=== PATIENT | male | born 1940 | race Caucasian/White ===

== ENCOUNTER 2016-11-21 07:25 | Inpatient (IN) ==
--- NOTE | 2016-11-21 09:06 | Diag Imaging Result Document ---
PROCEDURE NAME: CHEST-PORTABLE - 11/21/2016 PORTABLE CHEST, 2 VIEWS: FINDINGS: There are multiple old rib fractures on the left. There are sternotomy wires. There is an aortic valve prosthesis. There has apparently been left upper lobectomy. Considering differences in technique and positioning, there has been no appreciable change since 08/04/2016. IMPRESSION: Stable chest.
--- NOTE | 2016-11-21 09:08 | Diag Imaging Result Document ---
PROCEDURE NAME: XRAY HIP UNILATERAL LT - 11/21/2016 LEFT HIP, 2 VIEWS: FINDINGS: There is a fracture of the femoral neck. There is extensive atherosclerotic calcification in the iliac and superficial femoral arteries. IMPRESSION: Femoral neck fracture.
[2016-11-21] MEDS ORDERED: ZOFRAN IV ONE (09:31)
[2016-11-21] MEDS ORDERED: MORPHINE IM ONE (09:31)
--- NOTE | 2016-11-21 09:37 | PROVIDER DOCUMENTATION ---
HPI-Musculoskeletal Pain/Inj - GENERAL Chief Complaint: Hip Pain Stated Complaint: fall from standing, hip pain Time Seen by Provider: 11/21/16 09:18 Source: patient - HX OF PRESENT ILLNESS-MUSKULOSKELTAL Nature of Presenting Problem: Pt is a 76 y/o M c chief complaint of L hip pain after he had a mechanical trip and fall this morning on loose gravel. Pt states he had no LOC but was unable to get up after the fall. Pt's friend came to the drive way shortly after the fall and called 911. Pt has a h/o FL, CABG, recent DVTs, HTN, lung CA. He is currently on anti-coagulants. He is [facility] On arrival, pt is in minimal distress. Review of Systems - Adult - REVIEW OF SYSTEMS - ADULT Constitutional: reports: no symptoms reported. denies: chills, fatique Eyes: reports: no symptoms reported. denies: blurred vision, double vision Ears, Nose, Mouth & Throat: reports: no symptoms reported. denies: ear pain, nose pain Cardiovascular: reports: no symptoms reported. denies: chest pain, irregular heart rate Respiratory: reports: chronic cough, wheezing. denies: cough Gastrointestinal: reports: no symptoms reported. denies: abdominal pain, nausea Genitourinary: reports: no symptoms reported. denies: dysuria, hematuria Musculoskeletal: reports: bone pain, joint pain, joint swelling Integumentary: reports: no symptoms reported. denies: itching, rash Neurological: reports: no symptoms reported. denies: numbness, paresthesia Psychiatric: reports: no symptoms reported. denies: anxiety, emotional problems Endocrine: reports: no symptoms reported. denies: cold intolerance, heat intolerance Hematologic/Lymphatic: reports: no symptoms reported. denies: blood clots, low blood count Allergic/Immunologic: reports: no symptoms reported. denies: allergic reactions , food allergy All Other Systems: Reviewed and Negative Past History - Adult - PAST MEDICAL HISTORY-ADULT Review of Records: reports: Old Records Reviewed, Nursing Assessment Review, Medications Reviewed, Social history reviewed & non-contributory. Major Childhood Illnesses: reports: denies history Cardiovascular: reports: cardiac disease, CAD, HTN, heart valve problem (aortic valved replacement), FL, PVD Respiratory: reports: COPD, lung disease Gastrointestinal: reports: denies history Obstetrical/Gynecological: reports: denies history Genitourinary: reports: denies history Musculoskeletal: reports: denies history Neurological: reports: denies history Endocrine/Immune: reports: thyroid disorder Other Conditions: reports: denies history - PRIOR SURGERIES/PROCEDURES Surgical/Procedure History: reports: CABG, hernia repair, orthopedic (extremity) , other (arterial bypass legs, lung resection, aortic valve replacement) - PRIOR HOSPITALIZATIONS Prior Hospitalizations: reports: for other non-related - IMMUNIZATION STATUS Childhood Immunizations: See Nurse Assessment Flu Vaccine: See Nurse Assessment - FAMILY HISTORY Family History: reviewed, not pertinent Physical Exam-Injury Related - Physical Exam-Injury Related General Appearance: alert, mild distress Eyes: PERRL/EOMI, pink conjunctivae Head, Ears, Nose, Mouth & Throat: normocephalic/atraumatic, moist mucous membranes, normal ENT inspection Neck: non-tender, full range of motion, supple Respiratory: chest non-tender, lungs clear, normal breath sounds Cardiovascular: normal peripheral pulses, regular rate, rhythm, no edema Abdominal Exam: normal bowel sounds, non tender, soft Lymphatic: no adenopathy Back Exam: normal inspection Extremity: tenderness (L lateral hip tender on palpation and c movement of LLE) Integumentary: normal color, warm/dry, blanching Neurologic: grossly normal, no motor/sensory deficits Psych/Mental Status: normal mood/affect, normal thought content, normal thought process, oriented x 3 - Glascow Coma Score Best Eye Response ([place]): (4) open spontaneously Best Verbal Response (Maur[place]): (5) oriented Best Motor Response ([place]): (6) obeys commands Progress - PLAN OF CARE/RESULTS Progress/Plan/Lab Results: Laboratory Results - last 24 hr 11/21/16 11/21/16 11/21/16 09:35 09:35 09:35 WBC 11.24 H RBC 4.35 L Hgb 13.8 L Hct 40.9 L MCV 94.0 MCH 31.7 H MCHC 33.7 RDW Std Deviation 13.7 Plt Count 142 MPV 10.6 H Immature Gran % (Auto) 0.3 Neut % (Auto) 83.8 H Lymph % (Auto) 3.9 L Steele % (Auto) 9.5 H Eos % (Auto) 2.2 Baso % (Auto) 0.3 Immature Gran # (Auto) 0.03 Neut # (Auto) 9.42 H Lymph # (Auto) 0.44 L Steele # (Auto) 1.07 H Eos # (Auto) 0.25 Baso # (Auto) 0.03 PT 12.1 H INR 1.14 PTT (Actin FS) 33.4 Sodium 134 L Potassium 4.5 Chloride 98 Carbon Dioxide 25 Anion Gap 11 BUN 24 H Creatinine 1.4 H Estimated GFR/1.73 m2 50 BUN/Creatinine Ratio 17 Glucose 101 Calculated Osmolality 272 Calcium 8.7 L Total Bilirubin 0.73 AST 135 H ALT 34 Alkaline Phosphatase 66 Total Protein 7.0 Albumin 3.5 Globulin 3.5 Albumin/Globulin Ratio 1.0 Urine Source Urine Color Urine Turbidity Urine pH Ur Specific [place] Urine Protein Ur Glucose (Stick) Ur Ketones (Stick) Urine Blood Urine Nitrite Urine Bilirubin Urobilinogen Dipstick Urine Leukocytes Urine WBC (Auto) Urine RBC (Auto) U Epithel Cells (Auto) Urine Bacteria (Auto) Blood Type Antibody Screen 11/21/16 11/21/16 09:35 10:05 WBC RBC Hgb Hct MCV MCH MCHC RDW Std Deviation Plt Count MPV Immature Gran % (Auto) Neut % (Auto) Lymph % (Auto) Steele % (Auto) Eos % (Auto) Baso % (Auto) Immature Gran # (Auto) Neut # (Auto) Lymph # (Auto) Steele # (Auto) Eos # (Auto) Baso # (Auto) PT INR PTT (Actin FS) Sodium Potassium Chloride Carbon Dioxide Anion Gap BUN Creatinine Estimated GFR/1.73 m2 BUN/Creatinine Ratio Glucose Calculated Osmolality Calcium Total Bilirubin AST ALT Alkaline Phosphatase Total Protein Albumin Globulin Albumin/Globulin Ratio Urine Source CATH Urine Color YELLOW Urine Turbidity CLEAR Urine pH 5.0 Ur Specific [place] 1.015 Urine Protein TRACE A Ur Glucose (Stick) NEGATIVE Ur Ketones (Stick) TRACE A Urine Blood SMALL A Urine Nitrite NEGATIVE Urine Bilirubin NEGATIVE Urobilinogen Dipstick NORMAL Urine Leukocytes NEGATIVE Urine WBC (Auto) <10 Urine RBC (Auto) <10 U Epithel Cells (Auto) <10 Urine Bacteria (Auto) NEGATIVE Blood Type A POSITIVE Antibody Screen NEGATIVE Orders Category Date Time Status Admit - [facility] Routine AdmDCTranf 11/21/16 10:29 Ordered Activity - Strict Bedrest ORDERED Care 11/21/16 10:29 Active Lewis Cath Insertion ORDERED Care 11/21/16 09:23 Inactive Hold Anticoagulants DIRECTED Care 11/21/16 09:45 Inactive Neurological Check Q4H Care 11/21/16 10:29 Active Nursing- MD Consult Request ROUTINE Care 11/21/16 10:29 Completed Vital Signs Order Q 8-HR .ASSESS Care 11/21/16 10:29 Active MD [Physician/Provider Consults] Routine Cons 11/21/16 10:29 Ordered MD [Physician/Provider Consults] Routine Cons 11/21/16 10:29 Ordered CHEST-PORTABLE [RAD] Stat Exams 11/21/16 07:40 Completed XRAY HIP UNILATERAL LT [RAD] Stat Exams 11/21/16 07:40 Completed CBC WITH ELECTRONIC DIFF [HEME] Stat Lab 11/21/16 09:35 Completed COMPREHENSIVE METABOLIC PANEL [CHEM] Stat Lab 11/21/16 09:35 Completed PROTIME WITH INR [COAG] Stat Lab 11/21/16 09:35 Completed PTT [COAG] Stat Lab 11/21/16 09:35 Completed TYPE & SCREEN [BBK] Stat Lab 11/21/16 09:35 Completed URINALYSIS W/POSS RFLX CULT-1 [URINALYSIS] Stat Lab 11/21/16 10:05 Completed Metoprolol [Lopressor] Med 11/21/16 21:00 Active 25 mg PO BID Morphine Med 11/21/16 10:29 Active 2 mg IV Q4H PRN PRN Morphine Med 11/21/16 09:31 Discontinued 4 mg IM NOW ONE Omeprazole [Prilosec] Med 11/21/16 11:15 Active 20 mg PO DAILY@0700 Ondansetron [Zofran] Med 11/21/16 09:31 Discontinued 4 mg IV NOW ONE Ondansetron [Zofran] Med 11/21/16 10:29 Active 4 mg IV Q4H PRN PRN PRAVAstatin [Pravachol] Med 11/21/16 11:15 Active 80 mg PO DAILY Oxygen Device Routine Oth 11/21/16 10:29 Active Telemetry [OM.EQ] Routine Oth 11/21/16 10:29 Active EKG [EKG] Stat Ther 11/21/16 09:21 Draft Transfer/Admit Order [TRANSFER] Routine Transfer 11/21/16 09:46 Completed Result Diagrams: 11/21/16 09:35 05/12/17 09:35 - XRAY 1 XRAY: Left XRAY Study: Hip Impression: Abnormal (fx L femoral neck) - CONSULTS/PCP/HOSPITALIST Notification #1 *Consult/PCP/Hospitalist*: Dr. Burns (Ortho) Time Discussed: 09:49 Reason/Comments: Will see pt at 12p #2 Consult: Dr. Ortiz (Hospitalist) Time Discussed: 09:49 (Pending head ct) Reason/Comments: Will see pt and write all orders. Departure - Departure Time of Disposition Decision: 09:50 DIAGNOSIS: Femoral neck fracture Qualifiers: Encounter type: initial encounter Fracture type: closed Laterality: left Qualified Code(s): S72.002A - Fracture of unspecified part of neck of left femur , initial encounter for closed fracture Disposition: ADMITTED INPATIENT 09 Certified Medical Emergency: Emergent Condition: Stable - Critical Care Note This patient required my direct & personal management of CC.: No Attestation - Physician/ NINA Attestation Patient care was provided by Advanced Practice Provider:: Yes Advanced Practice Provider:: Peterson Mercado Advanced Practice Provider documentation review:: The Mid-level provider documentation, treatment plan and medical decision making was reviewed by the physician who agrees with all treatment and medical decision making by the P.
[2016-11-21 09:45] LABS: MANUAL DIFF NEEDED? NO
--- NOTE | 2016-11-21 09:48 | EKG Report ---
Test Performed on : 11/21/2016 09:36:54 AM Test Reason : hip fx Blood Pressure : / mmHG Vent. Rate : 098 BPM Atrial Rate : 098 BPM P-R Int : 210 ms QRS Dur : 088 ms QT Int : 374 ms P-R-T Axes : 083 044 081 degrees QTc Int : 477 ms Sinus rhythm. with 1st degree AV block. Septal infarct (cited on or before 24-SEP-2015) T wave abnormality, consider anterior ischemia Abnormal ECG When compared with ECG of 24-SEP-2015 16:23, Vent. rate has increased BY 40 BPM Non-specific change in ST segment in Lateral leads Nonspecific T wave abnormality no longer evident in Inferior leads T wave inversion more evident in Anterior leads QT has lengthened Unconfirmed Result
[2016-11-21 09:50] LABS: BASO% 0.3 % (0.0-0.8); EOS# 0.25 X1000 (0.0-0.7); EOS% 2.2 % (0.0-10.0); HEMATOCRIT 40.9 % (42.0-52.0); HEMOGLOBIN 13.8 g/dL (14.0-18.0); IMM GRAN# 0.03 X1000 (0.0-0.04); IMM GRAN% 0.3 % (0.0-0.5); LYMPH# 0.44 X1000 (1.2-3.4); LYMPH% 3.9 % (20.5-51.1); MCH 31.7 PG (27-31); MCHC 33.7 g/dL (33-37); MONO# 1.07 X1000 (0.11-0.59); MONO% 9.5 % (1.7-9.3); MPV 10.6 FL (7.4-10.4); NEUT% 83.8 % (42.2-75.2); PLT 142 X1000 (130-400); RBC 4.35 XMIL (4.7-6.1)
[2016-11-21 10:08] LABS: ALBUMIN 3.5 g/dL (3.5-5.0); CALCIUM 8.7 mg/dL (8.8-10.2); POTASSIUM 4.5 mmol/L (3.5-5.1); TOTAL BILIRUBIN 0.73 mg/dL (0.20-1.00)
[2016-11-21 10:12] LABS: INR 1.14; PROTIME 12.1 Seconds (9.2-11.7); PTT 33.4 Seconds (22.0-36.0)
[2016-11-21 10:14] LABS: URINE CULTURE NEEDED? NO; URINE MICRO REVIEW NEEDED? NO; URINE SOURCE CATH
[2016-11-21 10:20] LABS: BILIRUBIN URINE NEGATIVE (NEGATIVE); BLOOD URINE SMALL (NEGATIVE); COLOR YELLOW; GLUCOSE URINE NEGATIVE (NEGATIVE); LEUKOCYTES URINE NEGATIVE (NEGATIVE); NITRITE URINE NEGATIVE (NEGATIVE); PROTEIN URINE TRACE mg/dL (NEGATIVE); SP GRAVITY URINE 1.015; TURBIDITY URINE CLEAR (CLEAR); UROBILINOGEN URINE NORMAL (NORMAL)
[2016-11-21 10:21] LABS: UR EPITHELIAL CELLS <10 /HPF (<10); URINE BACTERIA NEGATIVE /HPF; URINE RBC <10 /HPF (<10); URINE WBC <10 /HPF (<10)
[2016-11-21] MEDS ORDERED: MORPHINE IV PRN (10:29)
[2016-11-21] MEDS ORDERED: ZOFRAN IV PRN (10:29)
--- NOTE | 2016-11-21 14:00 | CONSULTATION ---
DATE OF CONSULTATION: 11/21/2016 REFERRING PHYSICIAN: Jackson Ortiz MD. REASON FOR CONSULTATION: Left hip fracture. HISTORY OF PRESENT ILLNESS: Mr. Mix is a 76-year-old white male with an extensive medical history, which includes atrial fibrillation, chronic obstructive pulmonary disease, coronary artery disease, heart attack, peripheral vascular disease, aortic stenosis, acid reflux, cancer in the left lung, left upper lobe lung mass, high cholesterol, hypertension, and aortic valve replacement. This gentleman heard a noise and went to investigate something in the early hours of morning and he said that he had flip-flops on. He lost his footing and fell, landing on his left hip and causing him some severe pain. He was brought to the emergency department where x- rays were obtained of his left hip which revealed a left hip fracture. We were consulted to further evaluate the patient for surgical intervention. PAST MEDICAL HISTORY: As stated above in the history of present illness. PAST SURGICAL HISTORY: Left thoracotomy, left upper lobe lobectomy, heart bypass, aortic valve replacement, cataract surgery, left knee arthroscope, inguinal hernia repair in the past, bypass surgery on left leg. SOCIAL HISTORY: Patient is . He denies using tobacco. Reports drinking 2 of 3 beers a day. He lives alone. FAMILY HISTORY: Noncontributory. HOME MEDICATIONS: Prilosec 20 mg p.o. daily, Xanax 0.5 mg p.o. p.r.n., Synthroid 50 mcg p.o. daily, aspirin 81 mg p.o. daily, albuterol nebulizer inhaled t.i.d., Lopressor 25 mg p.o. b.i.d., gabapentin 300 mg p.o. 4 times a day, Percocet 10 1 p.o. q.4 h. p.r.n. for pain, Symbicort 160-4.5 mcg inhaler b.i.d., pravastatin 80 mg p.o. daily, Atrovent nebulizer 0.5 mg inhaled q.6 h., Ambien 10 mg p.o. p.r.n. for sleep, Lasix 20 mg p.o. daily, montelukast sodium 10 mg p.o. daily, Xarelto 15 mg p.o. daily. ALLERGIES: No known drug allergies. AFTERNOON BABYSITTER: Darwin Hernandez MD. REVIEW OF SYSTEMS: HEENT: Patient reports having cataract surgery in the past and reports having a trauma to his right eye from the [place] war which caused pupil irregularity. He also states that he has hearing aids which he did not bring with him so he is hard of hearing. Denies any problem with his throat or nose. He denies any postnasal drip or any sore throat. Cardiac: The patient reports having a history of AL in the past as well as having coronary artery bypassed grafting with one-vessel disease. He also reports having aortic valve replacement and currently denies any shortness of breath, any chest pain. Lungs: Patient reports having cancer in the left lung and having excision of a mass in the left lung in the past. He denies any shortness of breath or any wheezing or coughing. He reports having some pain in his left lung which he sees Pain Clinic for. Abdomen: The patient denies any chronic gastrointestinal problems. Denies any nausea, vomiting, diarrhea. Does report having some tenderness in his abdomen after his fall. Genitourinary: Patient denies any genitourinary problems. Neurological: Patient reports a decreased sensation in his extremities which he thinks is related to his vascular disease. He denies any other deficits. Musculoskeletal: The patient reports some left hip pain. He also reports any pain with movement of the left lower extremity. Reports having some decreased sensation in his feet. PHYSICAL EXAMINATION: General: The patient is awake. He is lying in the bed. He is articulate and able answer questions appropriately. HEENT: Head is normocephalic, atraumatic. Pupils equal, round, react to light. The left pupil is irregular due to the trauma in the past. Nares patent. Throat without exudate. Cardiac: S1, S2 auscultated. No murmur, rub or gallop noted. Lungs: Clear to auscultation bilaterally in all lung walker. Abdomen: Soft, mildly tender with a little bit diffuse ecchymoses on his abdomen but nondistended. Bowel sounds present in all quadrants. Genitourinary: Not examined. Neurological: The patient has decreased sensation in all extremities. Cranial nerves II through XII appear grossly intact. Musculoskeletal: Physical examination of the musculoskeletal system reveals pain with palpation of the left hip and pain with any movement of the left hip. The left lower extremity appears shortened and slightly externally rotated. At the hip I did not notice any ecchymosis or erythema there. Pulses distal to the injury were faint and he has some numbness in his left foot currently. IMAGING STUDIES: X-rays were obtained of the patient's left hip which revealed a displaced left femoral neck fracture. ASSESSMENT: Displaced left femoral neck fracture. PLAN: We talked with the patient about the injury and explained to him that it was necessary for him to have surgery in order to repair his left hip. Currently, he is on Xarelto, anticoagulant. That being said, we will try to transition him from Xarelto to Lovenox or heparin and plan to perform surgery on him at a later date, at which time we will perform a left hip hemiarthroplasty. The risks, benefits, and alternatives of the surgery were discussed with the patient including the risk of anesthesia, bleeding, infection, damage to blood vessels, nerves, tendons, ligaments, and other imponderables were discussed. The patient agrees to proceed with the surgery. Dictated by EDGARDO Meehan for Edwin Burns MD cc: EDGARDO Meehan MD
[2016-11-21] MEDS: PRAVACHOL PO SCH (14:15)
[2016-11-21] MEDS: PRILOSEC PO SCH (14:15)
--- NOTE | 2016-11-21 14:19 | CONSULTATION ---
DATE OF CONSULTATION: 11/21/2016 IMPRESSION: 1. Status post fall and associated left hip fracture. 2. Atherosclerotic coronary disease with history of previous coronary bypass grafting September 2008 with saphenous vein graft to obtuse marginal, coupled with aortic valve replacement with bioprosthesis. Patient had cardiac catheterization/coronary angiography approximately 1 year ago, which demonstrated bypass graft patent, mild coronary disease in other vessels, and adequately functioning aortic valve prosthesis. 3. Aortic valve disorder with history of aortic valve replacement with Domingo 23 mm pericardial tissue valve in September 2008 coupled with saphenous vein graft to obtuse marginal for management of severe aortic stenosis. Evaluation last year noninvasively and invasively demonstrated stable findings in dictated continued medical management. 4. Hypertension. 5. Hyperlipidemia. 6. Peripheral vascular disease. RECOMMENDATIONS: 1. Continue medical management from a cardiovascular standpoint. 2. Given the patient's fairly recent extensive evaluation 1 year ago and absence of angina or dyspnea in a generally active patient, his perioperative cardiac risk for surgery to repair his hip fracture should be acceptable. Further cardiovascular studies preoperatively do not appear warranted. HISTORY: This 76-year-old, white male with past history of previous aortic valve replacement with bioprosthesis coupled with coronary bypass grafting in 2008 for management of severe aortic stenosis and coronary disease was admitted after suffering a left hip fracture. He also has a past history of hypertension, hyperlipidemia, and peripheral vascular disease. Since his extensive cardiac workup a year ago, he has been managed medically and has not had any angina or dyspnea symptoms, remaining fairly active. He got up early this morning and went outside and stumbled on the gravel and suffered a left hip fracture. Cardiology consultation was requested regarding perioperative cardiac risk. PAST MEDICAL HISTORY: 1. Atherosclerotic coronary disease with history of previous coronary bypass graft with saphenous vein graft to second obtuse marginal in 2008 coupled with aortic valve replacement. 2. Aortic valve disorder. Patient is status post aortic valve replacement with an Domingo 23 mm pericardial tissue valve september 2008, coupled with saphenous vein graft to second obtuse marginal. 3. Hypertension. 4. Hyperlipidemia. 5. Peripheral vascular disease with history of right femoral bypass in 1994. 6. Hypothyroidism. 7. Gastroesophageal reflux. 8. History of malignant neoplasm of lung. Patient is status post left upper lobectomy September 2013. 9. Paroxysmal atrial fibrillation. 10. History of DVT. ALLERGIES: No known drug allergies. MEDICATIONS: Prior to admission as listed. SOCIAL HISTORY: He has history of previous cigarette use in the past. He quit many years ago. He drinks 1 or 2 alcoholic beverages daily. He is retired and . FAMILY HISTORY: Positive for coronary disease. REVIEW OF SYSTEMS: Pulmonary: Negative. Gastrointestinal: Negative. Constitutional: Negative. The remainder of review of systems negative/noncontributory with 14 total systems reviewed. PHYSICAL EXAMINATION: General: This is an older white male in no distress on room air. Vital Signs: Blood pressure 153/79, heart rate 102 and regular, oxygen saturation 98%. HEENT Exam: Extraocular movements intact. Mucous membranes are moist. Neck: Supple without jugular venous distention. There are no carotid bruits. Chest: Clear to auscultation. Cardiac: Reveals a regular rate and rhythm without appreciable murmur or gallop. Abdomen: Soft, nontender. Bowel sounds are normal. Extremities: Without edema. Neurologic: Reveals him to be alert and fully oriented. Speech is fluent. Moves all 4 extremities equally well. Skin: Warm and dry. PERTINENT DATA: Twelve lead EKG is pending. We will obtain and review. cc: Reji Card MD
[2016-11-21 15:53] LABS: URINE MICRO REVIEW NEEDED? NO; URINE SOURCE CATH
[2016-11-21 15:56] LABS: BILIRUBIN URINE NEGATIVE (NEGATIVE); BLOOD URINE MODERATE (NEGATIVE); COLOR YELLOW; GLUCOSE URINE NEGATIVE (NEGATIVE); LEUKOCYTES URINE MODERATE (NEGATIVE); NITRITE URINE NEGATIVE (NEGATIVE); PH URINE 5.5; PROTEIN URINE 30 mg/dL (NEGATIVE); SP GRAVITY URINE 1.022; TURBIDITY URINE CLEAR (CLEAR); UR EPITHELIAL CELLS <10 /HPF (<10); URINE BACTERIA NEGATIVE /HPF; URINE CULTURE NEEDED? YES; URINE RBC TNTC /HPF (<10); UROBILINOGEN URINE NORMAL (NORMAL)
[2016-11-21] MEDS: MORPHINE IV PRN ×2 (18:23→22:32)
[2016-11-21] MEDS: PERCOCET-10 PO PRN ×2 (19:43→23:48)
[2016-11-21] MEDS: LOPRESSOR PO SCH (21:44)
[2016-11-22] MEDS ORDERED: XANAX PO PRN (00:37)
[2016-11-22] MEDS: MORPHINE IV PRN ×5 (02:20→23:12)
[2016-11-22] MEDS ORDERED: HEPARIN IV ONE (02:41)
[2016-11-22] MEDS: HEPARIN 25,000 UNITS/D5W 25,000 UNIT/250 ML IV.SOLN IV SCH (02:49)
[2016-11-22] MEDS: PERCOCET-10 PO PRN ×5 (03:42→21:34)
[2016-11-22 07:57] LABS: MANUAL DIFF NEEDED? NO
[2016-11-22 08:19] LABS: BASO% 0.2 % (0.0-0.8); EOS# 0.43 X1000 (0.0-0.7); EOS% 4.2 % (0.0-10.0); HEMATOCRIT 38.9 % (42.0-52.0); HEMOGLOBIN 12.7 g/dL (14.0-18.0); IMM GRAN# 0.03 X1000 (0.0-0.04); IMM GRAN% 0.3 % (0.0-0.5); LYMPH# 0.58 X1000 (1.2-3.4); LYMPH% 5.7 % (20.5-51.1); MCH 31.7 PG (27-31); MCHC 32.6 g/dL (33-37); MONO# 1.18 X1000 (0.11-0.59); MONO% 11.6 % (1.7-9.3); MPV 11.4 FL (7.4-10.4); PLT 145 X1000 (130-400); RBC 4.01 XMIL (4.7-6.1)
[2016-11-22] MEDS: LASIX PO SCH (08:54)
[2016-11-22] MEDS: LOPRESSOR PO SCH ×2 (08:54→20:27)
[2016-11-22] MEDS: NEURONTIN PO SCH ×4 (08:54→20:28)
[2016-11-22] MEDS: SYNTHROID PO SCH (08:55)
[2016-11-22] MEDS: PRAVACHOL PO SCH (08:55)
[2016-11-22] MEDS: PRILOSEC PO SCH (08:56)
--- NOTE | 2016-11-22 10:23 | PROGRESS NOTE ---
DATE: 11/22/2016 SUBJECTIVE: Mr. Mix is lying in bed this morning still complaining of pain in the left hip and not really complaining of pain anywhere else. OBJECTIVE: Left lower extremity is shortened and externally rotated. He is still able to move the toes very well. He has good sensation to light touch to the toes and a very faint DP pulse. ASSESSMENT: Left femoral neck fracture. PLAN: Cardiology saw Mr. Mix yesterday and has cleared him for surgery. We are bridging from Xarelto to heparin per Dr. Ortiz's team, and we will plan on operative intervention on Thursday for a left hip hemiarthroplasty. cc: Edwin Burns MD
[2016-11-22] MEDS ORDERED: DUONEB (A & A) INH PRN (12:19)
[2016-11-22] MEDS ORDERED: DUONEB (A & A) INH ONE (12:19)
--- NOTE | 2016-11-22 14:06 | Diag Imaging Result Document ---
PROCEDURE NAME: CHEST-PORTABLE - 11/22/2016 SEMIUPRIGHT CHEST: COMPARISON: Compared to 11/21/2016. FINDINGS: Sternal wires are present and a heart valve has been replaced. The heart is not enlarged. The vessels are not distended. There is volume loss to the left apex. There are several old left rib fractures. The right lung is hyperexpanded and clear. The overall appearance is similar to that of the prior exam. IMPRESSION: Stable chest.
[2016-11-22] MEDS: DUONEB (A & A) INH SCH ×3 (15:45→22:55)
--- NOTE | 2016-11-22 16:44 | PROGRESS NOTE ---
DATE: 11/22/2016 SUBJECTIVE: Patient had more shortness of breath today but has not been on his regular medications. OBJECTIVE: Blood pressure 121/65, heart rate 98, respiratory rate 16, temperature 98.1 degrees, 99% on 3 L.Cardiovascular: Regular rate and rhythm. Pulmonary: Bilateral breath sounds. Clear to auscultation with rhonchi, upper airway noise. LABORATORY DATA: White count of 10, hemoglobin and hematocrit 12 and 38, platelets 145,000. PTT 81. PROBLEM LIST: 1. Left hip fracture. Plan for ORIF per Ortho on Thursday. Will continue pain management up until that time. He seems fairly comfortable. 2. Recent DVT. He is on a heparin drip. We have taken him off Xarelto. He has been off that for 3 days, now. 3. Atrial fibrillation appears to be rate controlled. Anticoagulation per heparin. Cardiology has cleared for surgery. 4. Disposition pending surgery and then progression with physical therapy. On hold for all that at this point. We will continue to monitor. cc: Jackson Ortiz MD
--- NOTE | 2016-11-22 18:49 | HISTORY AND PHYSICAL ---
CHIEF COMPLAINT: Left hip pain. HISTORY OF PRESENT ILLNESS: Briefly, this is a 76-year-old male with history of atrial fibrillation, CAD. He tripped yesterday morning the walking outside. He tripped over his foot and fell into the side of his truck. He was able to walk back inside with no pain. Pain started about 3.5 hours later while lying on the couch. Pain increased through the night. He was unable to get out of bed that morning. He called 911. Pain localized to left inguinal area. Patient did not have radiating stabbing pain to the groin on left. Pain was felt to be 5 to 10/10. He was found to have a left hip fracture and was admitted for treatment. PAST MEDICAL HISTORY: 1. CAD status post single bypass 2008. 2. Prosthetic aortic valve replacement, bioprosthetic bovine 2008. 3. History of DVT. He reports recent DVT diagnosed about 3 weeks ago. He has been on Xarelto. 4. Femoral artery bypass graft in 1994 on the left. 5. Lung cancer 2012. 6. Hypertension. 7. Chronic obstructive pulmonary disease. 8. Osteoarthritis. ALLERGIES: None. SOCIAL HISTORY: Quit in 2007 tobacco. Smoked 3-4 packs a day for 50 years so nearly 150 pack- year history. Drinks 2-3 beers over the week. No drug use. 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 Lives alone. FAMILY HISTORY: Reviewed and noncontributory. REVIEW OF SYSTEMS: Otherwise negative except for chest pain. MEDICATIONS: He currently takes Xanax 0.5 p.r.n. Aspirin 81 daily. Symbicort b.i.d. Lasix 20 daily. Gabapentin 300 q.i.d. Atrovent q.4, for 2 different doses. Synthroid 50 daily. Lopressor 25 b.i.d. Singulair 10 daily, Prilosec 20 daily. Percocet p.r.n. Pravastatin 80 daily. Xarelto 15 daily. Ambien 10 p.r.n. PHYSICAL EXAM: Blood pressure 121/65, heart rate of 98, respiratory rate of 16, temperature 98.1 degrees, 99% on 3 L. GENERAL: Well-developed male, in no acute distress except for pain. HEENT: Pupils equal, round, reactive to light. Extraocular movements were intact. Ear, nose and throat: Moist mucous membranes. Neck supple. Dentition is poor. NECK EXAM: Trachea midline. No JVD. PULMONARY: Regular rate and rhythm. Loud S2. Holosystolic murmur on the left lower sternal border but no click. PULMONARY: Clear bilaterally. Bruising noted over anterior ribs. GASTROINTESTINAL: Soft, nontender, nondistended. Bowel sounds are positive. EXTREMITIES: No clubbing or cyanosis. LYMPHATICS: No peripheral edema. NEUROLOGICAL: Nonfocal. SKIN EXAM: Was unremarkable. NEURO: Unremarkable. LABORATORY DATA: BUN and creatinine 24 and 1.4. Hemoglobin and hematocrit 13 and 40. Hip x-ray femoral neck fracture. Chest x-ray, no significant changes. ASSESSMENT: 1. This is a 76-year-old male with history of hip fracture, acute, traumatic problem. I think he is stable for open reduction, internal fixation. He has been off Xarelto for 2 days. I think he is probably okay for surgery. That will be at the discretion of primary surgeon. Dr. Burns has been consulted. Obviously he has cardiovascular risk factors but nothing that should preclude him from going through the process at this point. Obviously he will be at increased risk for bleeding and we will monitor for that. I would maintain him on his beta neil at this time. 2. Chronic obstructive pulmonary disease appears to be compensated. Will continue to have treatment. 3. Recent DVTs. We will initiate heparin treatment by continuous infusion until surgery can be performed. We will continue pain control. DISPOSITION: The patient will likely need rehab. We are just waiting on his surgery first. [facility]. cc: Jackson Ortiz MD
[2016-11-23] MEDS: PERCOCET-10 PO PRN ×4 (01:41→21:48)
[2016-11-23] MEDS ORDERED: LASIX IV ONE (01:57)
[2016-11-23] MEDS: DUONEB (A & A) INH SCH ×5 (02:55→22:56)
[2016-11-23] MEDS: MORPHINE IV PRN ×4 (03:55→17:47)
[2016-11-23 05:57] LABS: HEMATOCRIT 37.4 % (42.0-52.0); MCH 31.7 PG (27-31); MCHC 32.1 g/dL (33-37); MCV 98.9 FL (81-99); MPV 10.8 FL (7.4-10.4); RBC 3.78 XMIL (4.7-6.1)
[2016-11-23 06:05] LABS: POTASSIUM 4.1 mmol/L (3.5-5.1)
[2016-11-23] MEDS: HEPARIN 25,000 UNITS/D5W 25,000 UNIT/250 ML IV.SOLN IV SCH (06:10)
[2016-11-23] MEDS: PRILOSEC PO SCH (06:10)
[2016-11-23] MEDS: SYNTHROID PO SCH (06:10)
[2016-11-23] MEDS ORDERED: HEPARIN 25,000 UNITS/D5W 25,000 UNIT/250 ML IV.SOLN IV SCH ×3 (06:43→20:07)
[2016-11-23] MEDS ORDERED: HEPARIN IV ONE ×2 (06:45→20:08)
[2016-11-23] MEDS: NEURONTIN PO SCH ×4 (08:12→21:48)
[2016-11-23] MEDS: LOPRESSOR PO SCH ×2 (08:13→21:51)
[2016-11-23] MEDS: PRAVACHOL PO SCH (08:13)
[2016-11-23] MEDS: LASIX PO SCH (08:13)
[2016-11-23] MEDS ORDERED: SYMBICORT 160/4.5 MICROGM INHALER INH SCH (09:00)
--- NOTE | 2016-11-23 11:21 | PROGRESS NOTE ---
DATE: 11/23/2016 SUBJECTIVE: Mr. Mix is lying in bed this morning. He just got through eating breakfast feeling a little better. Looking a little better as well. OBJECTIVE: Left lower extremity exam, still externally rotate and a little bit shortened. Able to move the toes. He is neurovascularly intact still left in the left lower extremity. ASSESSMENT: Left femoral neck fracture. PLAN: We will plan on surgical intervention tomorrow to do a left hip hemiarthroplasty. He has been bridged off his overall Xarelto to heparin now. He has gotten cardiac clearance as well. So everything is to go for in the morning. He will be NPO after midnight. I went over with him today about the procedure which would be a left hip hemiarthroplasty. I went over the risks, benefits, potential complications. Risks include, but are not limited to, infection, wound healing problems, damage to nerves, arteries, veins, numbness, femur fracture, leg length discrepancies, DVT, and related risks. After discussing these with the patient, he expressed understanding and wished to proceed. So, we can proceed in the morning with surgery. He will be NPO after midnight. cc: Edwin Burns MD
--- NOTE | 2016-11-23 17:53 | PROGRESS NOTE ---
DATE: 11/23/2016 SUBJECTIVE: Patient has no focal complaints. OBJECTIVE: Vital signs: Blood pressure was 123/69, heart rate 99, respiratory 18, temperature 97.9, 94% on 2 L. Cardiovascular: Regular rate and rhythm. Pulmonary: Occasional rhonchi. GI: Soft, nontender, nondistended. Bowel sounds are positive. LABORATORY DATA: Hemoglobin and hematocrit 12 and 37, BUN and creatinine 25 and 1.4. PROBLEM LIST: 1. Left hip fracture. Plan for open reduction-internal fixation tomorrow. He is on a heparin drip because of recent deep venous thromboses. We will hold that at midnight and progress with test tomorrow. 2. Chronic obstructive pulmonary disease appears compensated. Continue to monitor. 3. History of deep venous thromboses. He will need bridging, Lovenox or heparin per Orthopedic Service. 4. Disposition. He will likely need rehab. Waiting surgery to be completed . cc: Jackson Ortiz MD
[2016-11-24 02:40] LABS: HEMOGLOBIN 11.3 g/dL (14.0-18.0); MCH 31.9 PG (27-31); MCHC 32.3 g/dL (33-37); MCV 98.9 FL (81-99); MPV 10.3 FL (7.4-10.4); RBC 3.54 XMIL (4.7-6.1)
[2016-11-24 02:54] LABS: CALCIUM 8.5 mg/dL (8.8-10.2); POTASSIUM 4.2 mmol/L (3.5-5.1)
[2016-11-24] MEDS: DUONEB (A & A) INH SCH ×7 (02:55→23:02)
[2016-11-24] MEDS: MORPHINE IV PRN (06:06)
[2016-11-24] MEDS: PRILOSEC PO SCH (06:11)
[2016-11-24] MEDS: SYNTHROID PO SCH (06:12)
--- NOTE | 2016-11-24 07:01 | PROGRESS NOTE ---
DATE: 11/24/2016 SUBJECTIVE: Mr. Mix was lying in bed this morning. Resting well. No acute distress. OBJECTIVE: Left lower extremity exam, shortened and externally rotated. Still able to move the toes very well. Good capillary refill to the toes. Faint pulse. ASSESSMENT: Left femoral neck fracture. PLAN: We will plan on a left hip hemiarthroplasty today. He is NPO. He has been bridged to heparin. Cardiology has cleared him from his heart standpoint. We will plan on getting his surgery done today. cc: Edwin Burns MD
[2016-11-24] MEDS: SYMBICORT 160/4.5 MICROGM INHALER INH SCH ×3 (08:19→20:10)
[2016-11-24] MEDS ORDERED: KEFZOL 2 GM/D5W 2 GM/50 ML IVPB ONE (08:56)
[2016-11-24] MEDS ORDERED: KETAMINE (DOSE) ONE (11:35)
[2016-11-24] MEDS ORDERED: DIPRIVAN 1% ONE (11:36)
[2016-11-24] MEDS ORDERED: VERSED ONE (11:36)
[2016-11-24] MEDS: MORPHINE ONE ×3 (11:43→11:53)
[2016-11-24] MEDS ORDERED: XYLOCAINE-MPF 2% ONE (11:56)
[2016-11-24] MEDS ORDERED: ZOFRAN ONE (11:56)
[2016-11-24] MEDS ORDERED: LR 1,000 ML ONE (11:57)
[2016-11-24] MEDS ORDERED: DECADRON ONE (11:57)
[2016-11-24] MEDS ORDERED: NS 1,000 ML ONE (12:15)
[2016-11-24] MEDS ORDERED: MORPHINE IV PRN (12:24)
[2016-11-24] MEDS ORDERED: MILK OF MAGNESIA PO PRN (12:24)
[2016-11-24] MEDS ORDERED: ZOFRAN IV PRN (12:24)
[2016-11-24] MEDS ORDERED: HALDOL IV PRN (12:24)
--- NOTE | 2016-11-24 12:54 | PROGRESS NOTE ---
DATE: 11/24/2016 Patient was admitted on 11/22/2016. Presented with left hip pain. A 76-year-old male with history of atrial fibrillation and coronary artery disease. Tripped on 11/20/2016 in the morning. When he was walking, he tripped over his foot, fell into the side of his truck. He was able to walk back inside with no pain. The pain started about 3-1/2 hours later while he was lying on the couch. Pain increased through the night. He was unable to get out of the bed in the morning and called 911. REVIEW OF PAST MEDICAL HISTORY: 1. Coronary artery disease. Single bypass 2008. 2. Prosthetic aortic valve replacement, Bioprosthetic which is a bovine valve 2008. 3. History of DVT and reports recent DVT diagnosed about 3 weeks ago. He is on Xarelto. 4. Femoral artery bypass graft 1994 on the left. 5. Lung cancer 2012. 6. Hypertension. 7. COPD. 8. Osteoarthritis. ALLERGIES: None. PHYSICAL EXAMINATION: General: Patient planned for surgery today. Vital Signs: Temperature 98.7 degrees, pulse 94, respirations 18, blood pressure 125/60. Lungs: Clear in all lung walker. Cardiovascular: Regular rhythm and rate without murmur or S3. Abdomen: Soft. Skin: Warm and dry. Good urine output, about 1200 mL. LAB: Reviewed from this morning, white count 6770, hematocrit was 35, platelet count 172,000, sodium 137, potassium 4.2, chloride 97, bicarb 29, BUN 26, creatinine 1.4 which is stable. ASSESSMENT AND PLAN: 1. Left femoral neck fracture. Plan is to do a left hemiarthroplasty today. He is NPO and he was bridged on heparin. Cardiology has cleared. 2. Chronic chronic obstructive pulmonary disease with good compensation breathing comfortably. 3. History of deep venous thrombosis, fairly recent. He will go back on anticoagulant. He was bridged with heparin. DISPOSITION: Hope to get him to rehab. Reviewed his orders. I do not see any change at this point. cc: Mitul Henderson MD
[2016-11-24] MEDS: LASIX PO SCH (12:57)
[2016-11-24] MEDS: PRAVACHOL PO SCH (12:58)
[2016-11-24] MEDS: LOPRESSOR PO SCH ×2 (12:59→20:42)
[2016-11-24] MEDS: NEURONTIN PO SCH ×4 (12:59→20:43)
[2016-11-24] MEDS: NS 1,000 ML IV SCH (13:47)
[2016-11-24] MEDS: TYLENOL PO SCH ×2 (13:47→20:42)
--- NOTE | 2016-11-24 13:51 | OPERATIVE NOTE ---
PROCEDURE DATE: 11/24/2016 PREOPERATIVE DIAGNOSES: Left hip femoral neck fracture. POSTOPERATIVE DIAGNOSIS: Left hip femoral neck fracture. PROCEDURE PERFORMED: Left hip hemiarthroplasty. SURGEON: Edwin Burns MD ASSISTANTS: 1. CHELSEA Celestin 2. Byron Tapia RN ANESTHESIA: Spinal with MAC. IMPLANT: DePuy Ludell stem, size 4, high offset neck, and a 52 head. ESTIMATED BLOOD LOSS: 150 mL. DISPOSITION: To PACU, hemodynamically stable. INDICATIONS FOR PROCEDURE: Mr. Peterson Mix is a 76-year-old male who presented to the emergency department last Thursday for hip fracture, admitted per the hospitalist service, bridged to heparin since he had been on Xarelto. We waited over the weekend for everything to level out and we got Cardiology to see him as well since he has an extensive heart history and they approved him for surgery also. I went over with him about the surgery, the risks, benefits, and potential complications, and he expressed understanding and wished to proceed. DESCRIPTION OF PROCEDURE: Mr. Mix was identified in the preoperative holding area. The left hip was marked out as the correct surgical site. He was then wheeled to the operating room, placed supine on the operating table, and all bony prominences were well padded. He was induced under spinal anesthesia and then under MAC. He was then flipped to the right lateral decubitus position. A beanbag was used to hold him in place. The left lower extremity was then prepped with Betadine and Betadine solution scrub, dried, and then ChloraPrep, and draped in the normal sterile fashion. A surgical pause was performed. We identified the correct patient, correct side, and the correct procedure. Preop antibiotics were given, IV Ancef. I started with a standard posterior approach to the hip. Dissection was carried down. I did not have much subcu tissue. I came right down on the fascia. I opened up the fascia and then came down on our short external rotators. I found the piriformis and tagged it. I then came down on that neck and T'd the capsule. I was able to see the fracture very well and it was very comminuted and getting a lot of bone fragments out with a rongeur. I freshened up the neck cut and then got the head out on a corkscrew and sized it to a 52. We trialed a 52 and it fit really well. I then noticed he did not have a lot of anteversion, more really retroversion, so we tried to dial in anteversion with our stem, which was the Corail stem that we trialed with first. I went up to a size 13. I trialed it with a high offset neck. Unfortunately, it was not stable enough. It kept dislocating on internal rotation and flexion, so I ended up abandoning the Corail stem. I went to the Ludell stem. I was able to dial in more anteversion with that stem and I seated it very well in the bone and then we trialed it. Actually, things were really nice and stable at that point. The leg lengths felt good and stability was good in flexion and internal rotation at that point. We then removed the trial components, irrigated everything copiously with normal saline. I put in the stem. I seated it well and it was very stable. I then put on the head, reduced things, and he was very stable at that point. I had a very good capsular repair at that point with 0 Vicryl. I then closed the piriformis and some of the short external rotators back to the greater trochanter with 0 Vicryl and then closed the deep fascia with 0 Vicryl, 2-0 Vicryl for the subcu, and daniella on the skin. Xeroform, 4 x 4's, and an island dressing were then placed. The patient was awoken from his MAC anesthesia and moved to his own bed. A hip abduction pillow was placed. He was then taken to the recovery room in stable condition. Postoperatively, the patient will be touchdown weightbearing on the left lower extremity for a few weeks while everything begins to heal in since we had to dial so much anteversion in. I will check him in the morning and see how he is doing. cc: Edwin Burns MD
[2016-11-24] MEDS: OXY IR PO PRN ×3 (14:01→20:43)
[2016-11-24] MEDS: KEFZOL 1 GM/D5W 1 GM/50 ML IVPB IV SCH (17:18)
[2016-11-24] MEDS ORDERED: HEPARIN 25,000 UNITS/D5W 25,000 UNIT/250 ML IV.SOLN IV SCH (18:00)
[2016-11-24] MEDS: COLACE PO SCH (20:43)
[2016-11-24] MEDS: PERIDEX MT SCH (20:44)
[2016-11-25] MEDS: KEFZOL 1 GM/D5W 1 GM/50 ML IVPB IV SCH (01:06)
[2016-11-25] MEDS: NS 1,000 ML IV SCH ×2 (01:57→18:48)
[2016-11-25] MEDS: DUONEB (A & A) INH SCH ×6 (03:55→22:56)
[2016-11-25] MEDS: SYNTHROID PO SCH ×2 (05:36→06:59)
[2016-11-25] MEDS: PRILOSEC PO SCH ×2 (05:36→06:59)
[2016-11-25] MEDS: OXY IR PO PRN ×4 (05:36→22:19)
[2016-11-25] MEDS: TYLENOL PO SCH ×3 (05:37→22:07)
[2016-11-25 05:45] LABS: HEMOGLOBIN 10.4 g/dL (14.0-18.0)
[2016-11-25 06:10] LABS: CALCIUM 9.2 mg/dL (8.8-10.2); POTASSIUM 4.9 mmol/L (3.5-5.1)
--- NOTE | 2016-11-25 07:35 | PROGRESS NOTE ---
DATE: 11/25/2016 SUBJECTIVE: Mr. Mix was lying in bed this morning. He is resting very well. When he was lying, looking at both legs, both legs look to be about equal length. His left leg is no longer shortened or externally rotated. He can move the toes very well. Incision is covered with a dressing and that is clean, dry, and intact. ASSESSMENT: Left hip hemiarthroplasty. PLAN: Mr. Mix is touchdown weightbearing to the left lower extremity. He will start physical therapy today. From my standpoint, the hospitalist team can bridge him back to [facility]. I will keep him touchdown weightbearing for about a month and then I would like to see him in clinic in about 2 weeks, and will be able to remove his daniella. cc: Edwin Burns MD
[2016-11-25] MEDS ORDERED: HEPARIN 25,000 UNITS/D5W 25,000 UNIT/250 ML IV.SOLN IV SCH ×2 (07:44→17:30)
[2016-11-25] MEDS: PRAVACHOL PO SCH (08:27)
[2016-11-25] MEDS: FERROUS SULFATE PO SCH (08:27)
[2016-11-25] MEDS: LOPRESSOR PO SCH ×2 (08:27→22:07)
[2016-11-25] MEDS: LASIX PO SCH (08:27)
[2016-11-25] MEDS: NEURONTIN PO SCH ×4 (08:27→22:10)
[2016-11-25] MEDS: PERIDEX MT SCH ×2 (08:28→22:07)
[2016-11-25] MEDS: SYMBICORT 160/4.5 MICROGM INHALER INH SCH ×2 (08:53→19:38)
--- NOTE | 2016-11-25 14:54 | PROGRESS NOTE ---
DATE: 11/25/2016 SUBJECTIVE: The patient is sitting up in bed in no acute distress. OBJECTIVE: Vital Signs: Temperature is 98 degrees, heart rate 76, respirations 16, blood pressure 134/60, O2 is 100% on 2 L nasal cannula. General: Mr. Mix is a 76-year-old male who is sitting up in bed. He finished up his lunch. HEENT: Atraumatic, normocephalic. PERRLA. Neck supple. Trachea midline. CV: No murmurs, gallops, or rubs noted. Respiratory: Lung sounds clear, nonlabored breathing. GI: Soft, nontender, nondistended. Positive bowel sounds in 4 quads. His left extremity incision is covered with dressings. It is clean, dry, and intact. LABORATORY DATA: Hemoglobin and hematocrit is 10 and 33. Chemistry: Sodium 138, potassium 4.9, BUN 25, creatinine 1.2. Blood glucose 157. ASSESSMENT AND PLAN: 1. Left hip femoral neck fracture status post left hip hemiarthroplasty performed by Dr. Burns. The patient started working with physical therapy today. He will be touchdown weightbearing to the left lower extremity. He will be bridged back to Xarelto at 6:00 a.m. on 11/26/2016. His heparin drip will be discontinued. He will follow up with Dr. Burns in 2 weeks in the clinic to remove his daniella. 2. Chronic obstructive pulmonary disease without exacerbation. 3. Deep venous thrombosis history, fairly recent. Again, the patient's heparin drip will be discontinued on 11/26/2016 at 0600, and he will resume his home Xarelto at that time. 4. Coronary artery disease, status post coronary artery bypass graft on 2008. 5. Aortic valve replacement with a tissue valve in 2008. 6. Hypertension, stable. 7. Malignant neoplasm of the lung, status post left upper lobectomy in 09/2013. 8. Paroxysmal atrial fibrillation, currently in sinus rhythm. Further recommendations to follow physician evaluation. Dictated by EDGARDO Barros for Mitul Henderson MD cc: Mitul Henderson MD [facility]
[2016-11-25] MEDS: HEPARIN 25,000 UNITS/D5W 25,000 UNIT/250 ML IV.SOLN IV SCH (17:46)
[2016-11-25] MEDS: COLACE PO SCH (22:08)
[2016-11-26] MEDS: HEPARIN 25,000 UNITS/D5W 25,000 UNIT/250 ML IV.SOLN IV SCH
[2016-11-26] MEDS: DUONEB (A & A) INH SCH ×6 (03:45→23:06)
[2016-11-26 05:38] LABS: HEMATOCRIT 30.9 % (42.0-52.0); HEMOGLOBIN 9.8 g/dL (14.0-18.0)
[2016-11-26] MEDS ORDERED: XARELTO PO SCH (06:00)
[2016-11-26] MEDS: XARELTO PO SCH (06:37)
[2016-11-26] MEDS: PRILOSEC PO SCH (06:37)
[2016-11-26] MEDS: SYNTHROID PO SCH (06:37)
[2016-11-26] MEDS: OXY IR PO PRN ×3 (06:38→22:15)
[2016-11-26] MEDS: TYLENOL PO SCH ×3 (06:38→22:10)
--- NOTE | 2016-11-26 07:28 | PROGRESS NOTE ---
DATE: 11/26/2016 SUBJECTIVE: Mr. Mix is lying in bed this morning. He is awake. The pain seems well controlled. OBJECTIVE: Left lower extremity exam: Dressing is clean, dry, and intact. He is moving his toes and his ankle very well. Faint DP pulse still. ASSESSMENT: Status post left hip hemiarthroplasty. PLAN: Mr. Mix is doing well. I am okay with him going to rehab. He is going to be touch down weightbearing until he sees me back in clinic, and we will grab some x-rays at that time. cc: Edwin Burns MD
[2016-11-26] MEDS: SYMBICORT 160/4.5 MICROGM INHALER INH SCH ×2 (07:51→19:31)
[2016-11-26] MEDS: NS 1,000 ML IV SCH (08:23)
[2016-11-26] MEDS: LOPRESSOR PO SCH ×2 (09:43→22:10)
[2016-11-26] MEDS: NEURONTIN PO SCH ×4 (09:43→22:10)
[2016-11-26] MEDS: LASIX PO SCH (09:43)
[2016-11-26] MEDS: FERROUS SULFATE PO SCH (09:43)
[2016-11-26] MEDS: ASPIRIN PO SCH (09:43)
[2016-11-26] MEDS: PRAVACHOL PO SCH (09:43)
[2016-11-26] MEDS: PERIDEX MT SCH ×2 (09:43→22:10)
--- NOTE | 2016-11-26 16:34 | PROGRESS NOTE ---
DATE: 11/26/2016 SUBJECTIVE: Mr. Mix feels much better, better day than yesterday. He had a hip fracture, open reduction internal fixation and is on pace I think to go to rehab tomorrow. OBJECTIVE: Vital signs: He remains afebrile, temp 97.9 degrees, pulse 78, respirations 18, blood pressure 153/51. Neck: CVP less than 6 cm. Lungs: Clear in all lung walker. Cardiovascular: Regular rhythm and rate without murmur or S3. Abdomen: Soft. Skin: Warm and dry. : Good urine output, 2200 mL. LABORATORY: His hematocrit was 30 and has remained stable. ASSESSMENT AND PLAN: 1. Status post left hip hemiarthroplasty. Doing very well. To rehab tomorrow. 2. He has history of chronic obstructive pulmonary disease. He is not having any trouble with his breathing. Good air and gas exchange. 3. Deep venous thrombosis history, fairly recent. Patient currently is on Xarelto 15 mg daily. 4. History coronary artery disease status post coronary artery bypass graft in 2008. 5. Aortic valve replacement, tissue valve in 2008. 6. Hypertension. Blood pressure has been stable. 7. Malignant neoplasm of the lung status post left upper lobectomy on 09/29/2013. 8. Paroxysmal atrial fibrillation. Currently in sinus rhythm. REVIEW OF HIS ORDERS: I do not know that I see any change. Xarelto 15 mg a day, Pravachol 80 mg a day, oxycodone 10 mg q.4 hours p.r.n., Prilosec 20 mg a day, Lopressor 25 mg b.i.d., Synthroid 50 mcg daily, Neurontin 300 mg 4 times a day, Lasix 20 mg a day, ferrous sulfate 325 mg a day, docusate sodium 200 mg daily, aspirin 81 mg a day, budesonide 1 puff b.i.d., and he is on albuterol treatments p.r.n. cc: Mitul Henderson MD
[2016-11-26] MEDS: COLACE PO SCH (22:10)
[2016-11-27] MEDS: DUONEB (A & A) INH SCH ×2 (03:12→08:07)
[2016-11-27 05:22] LABS: HEMATOCRIT 32.3 % (42.0-52.0); HEMOGLOBIN 10.3 g/dL (14.0-18.0)
[2016-11-27] MEDS: TYLENOL PO SCH (06:52)
[2016-11-27] MEDS: XARELTO PO SCH (06:52)
[2016-11-27] MEDS: SYNTHROID PO SCH (06:52)
[2016-11-27] MEDS: OXY IR PO PRN (06:52)
[2016-11-27] MEDS: PRILOSEC PO SCH (06:52)
[2016-11-27 07:29] VITALS: BP 128/66
[2016-11-27] MEDS ORDERED: DULCOLAX PR ONE (07:30)
[2016-11-27] MEDS ORDERED: LACTULOSE PO ONE (07:30)
[2016-11-27] MEDS: SYMBICORT 160/4.5 MICROGM INHALER INH SCH (08:07)
[2016-11-27] MEDS: PERIDEX MT SCH (08:57)
[2016-11-27] MEDS: LOPRESSOR PO SCH (08:58)
[2016-11-27] MEDS: FERROUS SULFATE PO SCH (08:58)
[2016-11-27] MEDS: NEURONTIN PO SCH (08:58)
[2016-11-27] MEDS: ASPIRIN PO SCH (08:58)
[2016-11-27] MEDS: LASIX PO SCH (08:58)
[2016-11-27] MEDS: PRAVACHOL PO SCH (08:58)
--- NOTE | 2016-11-27 09:30 | DISCHARGE SUMMARY ---
ADMISSION DATE: 11/22/2016 DISCHARGE DATE: 11/27/2016 CONSULTATIONS: 1. Dr. Reji Card with cardiology. 2. Dr. Burns with orthopedics. PERTINENT PROCEDURES: Left hip hemiarthroplasty performed by Dr. Burns. DISCHARGE DIAGNOSES: 1. Status post left hip hemiarthroplasty. 2. Chronic obstructive pulmonary disease without exacerbation. 3. Fairly recent deep venous thrombosis 4. Coronary artery disease, status post coronary artery bypass graft in 2008. 5. Aortic valve replacement, tissue, in 2008. 6. Hypertension 7. Malignant neoplasm of the lung, status post left upper lobectomy in 2013. 8. Paroxysmal atrial fibrillation HOSPITAL COURSE: Mr. Mix is a 76-year-old, male with a history of atrial fibrillation, CAD, status post CABG, aortic valve tissue replacement, recent DVT diagnosed 3 weeks ago. Patient has been on Xarelto. Femoral-popliteal in 1994 on the left, lung cancer, status post lobectomy, hypertension, chronic obstructive pulmonary disease, osteoarthritis. The patient reported to the ED after he tripped on the morning of the walking outside. He tripped over his foot and fell on the side of his truck. He was able to walk back inside with no pain. The pain started about 3.5 hours later while laying on the couch. His pain increased throughout the night. He was unable to get out of bed that morning. He did call 911. The pain was localized to the left inguinal area. The patient did have radiating, stabbing pain to the left groin. In the ED, x-ray revealed a left hip fracture. Orthopedics was consulted. The patient underwent a left hip hemiarthroplasty by Dr. Edwin Burns. The patient worked with physical therapy. He was touchdown weightbearing only on the left side. He will continue to be touchdown weightbearing until he sees Dr. Burns back in the clinic and will follow up with x-rays. Due to the patient being on Xarelto for previous DVTs, he was started on Lovenox and then transitioned to a heparin drip until he had his surgery. He was taken off his heparin drip on 11/26/2016 and resumed on his home Xarelto for his DVT. manager field services was consulted for rehab placement. VITAL SIGNS: At the time of discharge, temperature is 98.3 degrees, heart rate 79, respirations 18, blood pressure 128/66, O2 is 100% on 2 L nasal cannula. DISCHARGE DIET: Healthy heart. DISCHARGE MEDICATIONS: 1. Xanax 0.5 mg p.o. q.4, q.8 hours p.r.n. anxiety. 2. Aspirin 81 mg p.o. daily. 3. Colace 200 mg p.o. at bedtime. 4. Lasix 20 mg p.o. daily. 5. Gabapentin 300 mg p.o. 4 times a day. 6. Atrovent nebulizer 0.5 mg inhaled RT q.6 hours. 7. Synthroid 50 mcg p.o. daily. 8. Lopressor 25 mg p.o. b.i.d. 9. Percocet 10/325 one each p.o. q.4 hours p.r.n. 10. Prilosec 20 mg p.o. daily. 11. MiraLAX 17 g p.o. daily. 12. Pravastatin 80 mg p.o. daily. 13. Xarelto 15 mg p.o. daily. 14. Ambien 10 mg p.o. p.r.n. at bedtime. 15. Symbicort 160/4.5 mcg inhaler 10.2 g inhaled b.i.d. 16. Montelukast sodium 10 mg p.o. daily. FOLLOWUP: The patient is being discharged to rehab. He will need to follow up with Dr. Burns in his office. He will remain touchdown weightbearing until he sees Dr. Burns in the office. At that time, they will repeat x-rays in 2 weeks and at that time, they will also remove his daniella. The patient can return to the ED for any worsening of symptoms. DISCHARGE TIME: 30 minutes. Dictated by EDGARDO Barros for Alexia Gramajo MD cc: Alexia Gramajo MD [facility]
== END 2016-11-27 11:17 ==
LOC: ED 07:25 → SUATTDRO 10:10 → 4N 10:10
PROVIDERS: ATTEND Internal Medicine

== ENCOUNTER 2017-03-26 05:08 | Inpatient (IN) ==
--- NOTE | 2017-03-25 09:42 | EKG Report ---
Test Performed on : 03/25/2017 09:33:26 AM Test Reason : PAT Blood Pressure : / mmHG Vent. Rate : 061 BPM Atrial Rate : 061 BPM P-R Int : 192 ms QRS Dur : 076 ms QT Int : 392 ms P-R-T Axes : 023 051 060 degrees QTc Int : 394 ms Normal sinus rhythm. Possible Septal infarct (cited on or before 24-SEP-2015) Abnormal ECG When compared with ECG of 21-NOV-2016 09:36, Vent. rate has decreased BY 37 BPM T wave inversion no longer evident in Anterior leads QT has shortened Confirmed by Esvin Flores MD ([id number]) on 03/25/2017 3:21:39 PM
[2017-03-25 10:16] LABS: HEMATOCRIT 41.2 % (42.0-52.0); HEMOGLOBIN 13.3 g/dL (14.0-18.0); MCH 28.6 PG (27-31); MCHC 32.3 g/dL (33-37); MCV 88.6 FL (81-99); MPV 10.4 FL (7.4-10.4); RBC 4.65 XMIL (4.7-6.1)
[2017-03-25 11:02] LABS: CALCIUM 8.9 mg/dL (8.8-10.2); POTASSIUM 4.8 mmol/L (3.5-5.1)
[2017-03-26] MEDS ORDERED: KEFZOL 1 GM/D5W 1 GM/50 ML IVPB ONE (05:35)
[2017-03-26] MEDS ORDERED: LR 1,000 ML ONE (05:35)
[2017-03-26] MEDS ORDERED: LOPRESSOR ONE (05:54)
[2017-03-26] MEDS ORDERED: LOPRESSOR PO ONE (06:15)
[2017-03-26] MEDS ORDERED: DIPRIVAN 1% ONE (06:21)
[2017-03-26] MEDS ORDERED: ROBINUL ONE (06:21)
[2017-03-26] MEDS ORDERED: XYLOCAINE-MPF 2% ONE (06:21)
[2017-03-26] MEDS ORDERED: QUELICIN (DOSE) ONE (06:21)
[2017-03-26] MEDS ORDERED: HEPARIN ONE ×2 (06:27)
[2017-03-26] MEDS ORDERED: NS 1,000 ML ONE ×3 (06:28→11:49)
[2017-03-26] MEDS ORDERED: HEPARIN (DOSE) ONE ×3 (06:33→09:11)
[2017-03-26] MEDS ORDERED: KEFZOL ONE (06:47)
[2017-03-26] MEDS ORDERED: SENSORCAINE 0.5%-EPI 1:200,000 ONE (06:47)
[2017-03-26] MEDS ORDERED: NEO-SYNEPHRINE ONE ×2 (07:14→08:32)
[2017-03-26] MEDS ORDERED: EPHEDRINE ONE (07:14)
[2017-03-26] MEDS ORDERED: PAPAVERINE ONE (07:41)
[2017-03-26 08:07] LABS: URINE SOURCE CATH
[2017-03-26 08:23] LABS: BILIRUBIN URINE NEGATIVE (NEGATIVE); BLOOD URINE NEGATIVE (NEGATIVE); CLARITY CLEAR (CLEAR); COLOR STRAW; GLUCOSE URINE NEGATIVE (NEGATIVE); LEUKOCYTES URINE NEGATIVE (NEGATIVE); NITRITE URINE NEGATIVE (NEGATIVE); PH URINE 5.5; PROTEIN URINE NEGATIVE (NEGATIVE); UROBILINOGEN URINE 0.2 EU/dL (0.2-1.0)
[2017-03-26 08:27] LABS: URINE EPITHELIAL CELLS <10 /HPF (<10); URINE RBC <10 /HPF (<10); URINE WBC <10 /HPF (<10)
[2017-03-26] MEDS ORDERED: NS 500 ML ONE (09:58)
[2017-03-26] MEDS: DILAUDID ONE ×5 (11:12→12:08)
[2017-03-26] MEDS: DUONEB (A & A) ONE ×2 (11:40→14:01)
[2017-03-26 11:42] LABS: HEMATOCRIT 33.3 % (42.0-52.0); HEMOGLOBIN 10.5 g/dL (14.0-18.0)
--- NOTE | 2017-03-26 12:03 | OPERATIVE NOTE ---
PROCEDURE DATE: 03/26/2017 PROCEDURE PERFORMED: 1. Left femoral artery access, antegrade approach with ultrasound guidance. 2. Left lower extremity arteriogram. 3. Percutaneous left superficial femoral artery atherectomy using a HawkOne LS catheter, followed by paclitaxel balloon angioplasty using a 5 x 120 balloon. 4. Left peroneal artery balloon angioplasty using a Powerflex 3 x 4 balloon. 5. A left anterior tibial artery atherectomy using a TurboHawk SSCL catheter. 6. A balloon angioplasty of the anterior tibia with a Slalom 3 x 4 balloon. 7. An open patch angioplasty of the anterior tibial artery using a bovine patch 1 x 6. SURGEON: Patrick Huber MD. ASSISTANTS: Mimi Marcum and Regina. 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 INDICATIONS: This is a gentleman with severe peripheral vascular disease who has a left lateral malleolar ulcer that is not healing. DESCRIPTION OF PROCEDURE: Satisfactory general anesthesia was achieved. The left groin and leg were prepped and draped in a sterile fashion. The foot was excluded. We imaged the left femoral artery which is the graft coming from his abdomen and we accessed it without difficulty, passed the guidewire, Seldinger technique. Then this went into the superficial femoral artery so we put a 7-Russian sheath. Then we then gave him 7000 units of heparin systemically. We passed the Glidewire down to the mid SFA. It would not traverse any more. We then shot an arteriogram showing severe calcific stenosis within the SFA. We were able to use a Trailblazer to cross the stenoses and occlusions into the distal SFA into the popliteal. We proved we were in the distal artery with a shot through the Trailblazer. We then switched to an 0.014 wire, Nitrex wire, and obtained a HawkOne LS catheter. We passed it and treated the SFA. After we treated it, we then used a 5 x 120 paclitaxel balloon which we inflated for 3 minutes. Completion arteriogram was significantly improved. We did treat the more distal SFA with the same HawkOne LS catheter. We then looked at our popliteal artery. It looked good. We looked at the trifurcation vessels. It looks like we had good 2 vessel runoff to the foot through the anterior tibial and the posterior tibial. There was a high-grade stenosis in his anterior tibial and the peroneal did not traverse all the way to the ankle so we were able to pass our 0.014 wire down the peroneal. We then obtained a Powerflex balloon 3 x 4 and ballooned it. A completion arteriography showed significant improvement in flow in the peroneal. We then passed our wire down the anterior tibial and obtained the TurboHawk SSCL atherectomy catheter and treated it. Unfortunately, after we treated it, we shot an arteriogram, showing extravasation from the artery in the mid calf region laterally. We passed a 3.0 balloon across it and held pressure. It was a 3 x 4 Slalom balloon and we blew it up for 3 minutes but this did not resolve the bleeding. I then cut down on the anterior tibial artery distally and we inserted a 4-Russian sheath in the artery distally, passed the guidewire up across the area of extravasation. The reason that I did this was because there wire coming from proximal would not go on down the artery so we went retrograde. EW were able to traverse. We put the 4-Russian sheath in. We were able to traverse the area of laceration easily and again shot a retrograde arteriogram. This showed extravasation. We put a balloon up retrograde and held pressure on the outside of the leg, and still could not stop the bleeding so then I extended my incision on up the leg to expose the area of laceration. In fact, there was a 2 cm laceration on the lateral wall of the anterior tibial artery. The sheath from below the 2 wires crossed inside the vessel. Since he had his greater saphenous vein harvested, we then chose a bovine patch and under 2.5 loupe magnification, we sewed the lateral wall tear with the 1 x 6 bovine patch to match the laceration. Upon completion of that, there was no further bleeding from the spot. We once again shot a retrograde arteriogram and this had resolved the extravasation. I then chose to use a 7-0 Prolene to close the hole in the artery distally. Before I did that though, I squirted papaverine 120 mg into the anterior tibial artery so that it would go up and go down the peroneal and the posterior tibial. We did the give the patient an extra 1000 units of heparin during the case. I then placed a 7-0 Prolene stitch in the artery and removed the 4- Russian sheath and this was hemostatic. I chose to leave a Bernardino drain in between the muscle groups and then proceeded to close the subcutaneous tissue with a running 3-0 Polysorb. Then 2-0 silk was used to secure the drain at the very apex of the wound. We then closed the skin incision with daniella. We turned our attention back to the 7-Russian sheath in the groin. We used a 6.7 Mynx closure to close it. We held pressure. Hemostasis was satisfactory. A sterile pressure dressing was applied on the left groin. Gauze and Kerlix were placed on the calf wound. He tolerated the procedure satisfactorily. There were 175 mL of contrast used. He was sent to the recovery room in satisfactory condition. cc: Patrick Huber MD MTDD
[2017-03-26] MEDS ORDERED: ZOFRAN IV PRN (13:43)
[2017-03-26] MEDS: NS 1,000 ML IV SCH ×2 (13:50→22:32)
[2017-03-26] MEDS: DILAUDID IV PRN ×2 (14:34→22:28)
[2017-03-26] MEDS: XANAX PO PRN (14:34)
[2017-03-26] MEDS: DUONEB (A & A) INH PRN (15:53)
[2017-03-26] MEDS: NORCO-10 PO PRN (17:13)
[2017-03-26] MEDS: LOPRESSOR PO SCH (22:29)
[2017-03-27] MEDS: XANAX PO PRN (01:20)
[2017-03-27] MEDS: NORCO-10 PO PRN ×4 (01:20→20:46)
[2017-03-27 05:44] LABS: MANUAL DIFF NEEDED? NO
[2017-03-27 05:52] LABS: BASO% 0.3 % (0.0-0.8); EOS# 0.27 X1000 (0.0-0.7); EOS% 3.1 % (0.0-10.0); HEMATOCRIT 30.4 % (42.0-52.0); HEMOGLOBIN 9.3 g/dL (14.0-18.0); IMM GRAN# 0.03 X1000 (0.0-0.04); IMM GRAN% 0.3 % (0.0-0.5); LYMPH# 0.84 X1000 (1.2-3.4); LYMPH% 9.7 % (20.5-51.1); MCH 28.1 PG (27-31); MCHC 30.6 g/dL (33-37); MCV 91.8 FL (81-99); MONO# 0.91 X1000 (0.11-0.59); MONO% 10.5 % (1.7-9.3); MPV 10.8 FL (7.4-10.4); NEUT% 76.1 % (42.2-75.2); PLT 118 X1000 (130-400); RBC 3.31 XMIL (4.7-6.1)
[2017-03-27] MEDS: NS 1,000 ML IV SCH ×3 (05:56→20:47)
[2017-03-27] MEDS: PRILOSEC PO SCH ×2 (05:56→08:00)
[2017-03-27] MEDS: DILAUDID IV PRN ×2 (06:00→14:20)
[2017-03-27 06:11] LABS: AGAP 13; BUN 12 mg/dL (8-22); CALCIUM 8.1 mg/dL (8.8-10.2); CHLORIDE 102 mmol/L (98-107); COSMO 279; POTASSIUM 4.5 mmol/L (3.5-5.1); SODIUM 140 mmol/L (136-145); TCO2 25 mmol/L (25-35)
[2017-03-27] MEDS: NEURONTIN PO SCH (08:58)
[2017-03-27] MEDS: ZYRTEC PO SCH (08:59)
[2017-03-27] MEDS: SYNTHROID PO SCH (08:59)
[2017-03-27] MEDS: LIPITOR PO SCH (08:59)
[2017-03-27] MEDS: PERIDEX MT SCH ×2 (08:59→20:46)
[2017-03-27] MEDS: LASIX PO SCH (08:59)
[2017-03-27] MEDS: ASPIRIN PO SCH (08:59)
[2017-03-27] MEDS: SANTYL OINT TOP SCH (09:00)
[2017-03-27] MEDS: PAMELOR PO SCH (09:00)
[2017-03-27] MEDS: LOPRESSOR PO SCH ×2 (09:04→20:46)
[2017-03-27] MEDS: DUONEB (A & A) INH PRN ×4 (09:42→19:02)
[2017-03-27] MEDS ORDERED: SALINE LOCK IV FLUID XX ONE (10:08)
[2017-03-28] MEDS: NORCO-10 PO PRN ×3 (04:00→19:43)
[2017-03-28] MEDS: NS 1,000 ML IV SCH (05:07)
[2017-03-28] MEDS: PRILOSEC PO SCH (06:26)
[2017-03-28] MEDS: DUONEB (A & A) INH PRN ×2 (09:55→16:30)
[2017-03-28] MEDS: LIPITOR PO SCH (10:18)
[2017-03-28] MEDS: LOPRESSOR PO SCH ×3 (10:18→22:58)
[2017-03-28] MEDS: NEURONTIN PO SCH (10:19)
[2017-03-28] MEDS: LASIX PO SCH (10:19)
[2017-03-28] MEDS: PAMELOR PO SCH (10:19)
[2017-03-28] MEDS: ZYRTEC PO SCH (10:19)
[2017-03-28] MEDS: ASPIRIN PO SCH (10:19)
[2017-03-28] MEDS: SYNTHROID PO SCH (10:19)
[2017-03-28] MEDS: PERIDEX MT SCH ×2 (10:20→22:56)
--- NOTE | 2017-03-28 14:16 | PROGRESS NOTE ---
DATE: 03/28/2017 SUBJECTIVE: The patient is doing well. He is complaining of a little pain and tingling in his left foot. Otherwise no problems. OBJECTIVE: He is afebrile. Vital signs are stable.General: He is alert and oriented x3. No acute distress. Extremities: His left foot is warm. There is some chronic redness of the lower leg and foot. He does have a faint palpable dorsalis pedis pulse in his left foot. Incisional dressings on the leg are clean and dry. ASSESSMENT AND PLAN: A 76-year-old male status post left lower extremity atherectomy with patch angioplasty of the anterior tibial artery. He appears to be doing well and is stable. The plans are to go to rehab early next week. cc: MD Patrick Ramirez MD
[2017-03-28] MEDS: SANTYL OINT TOP SCH (16:21)
[2017-03-29] MEDS: PRILOSEC PO SCH (06:16)
--- NOTE | 2017-03-29 13:11 | PROGRESS NOTE ---
DATE: 03/29/2017 SUBJECTIVE: The patient has no new problems or complaints overnight. OBJECTIVE: Vital signs: He is afebrile. Vital signs are stable. General: He is awake and alert. No acute distress. Extremities: His left foot is warm. There is some chronic redness of the left leg and foot. There is delayed capillary refill in the toes. The incisional dressings are clean and dry. ASSESSMENT AND PLAN: He is status post left femoral atherectomy and repair of the anterior tibial artery. He appears to be stable. Dr. Huber will reassess him tomorrow for possible rehab discharge. cc: MD Patrick Ramirez MD
[2017-03-29] MEDS: ASPIRIN PO SCH (15:15)
[2017-03-29] MEDS: ZYRTEC PO SCH (15:15)
[2017-03-29] MEDS: PAMELOR PO SCH (15:15)
[2017-03-29] MEDS: NEURONTIN PO SCH (15:15)
[2017-03-29] MEDS: LOPRESSOR PO SCH (15:15)
[2017-03-29] MEDS: LASIX PO SCH (15:15)
[2017-03-29] MEDS: SYNTHROID PO SCH (15:15)
[2017-03-29] MEDS: LIPITOR PO SCH (15:15)
[2017-03-29] MEDS: PERIDEX MT SCH ×2 (15:16→20:57)
[2017-03-29] MEDS: DUONEB (A & A) INH PRN (16:56)
[2017-03-29] MEDS: NORCO-10 PO PRN (18:54)
[2017-03-30] MEDS: LOPRESSOR PO SCH ×3 (06:23→20:37)
[2017-03-30] MEDS: PRILOSEC PO SCH (06:24)
[2017-03-30] MEDS: DUONEB (A & A) INH PRN ×2 (09:12→15:37)
[2017-03-30] MEDS: LIPITOR PO SCH (09:20)
[2017-03-30] MEDS: LASIX PO SCH (09:20)
[2017-03-30] MEDS: NEURONTIN PO SCH (09:20)
[2017-03-30] MEDS: SYNTHROID PO SCH (09:21)
[2017-03-30] MEDS: PAMELOR PO SCH (09:21)
[2017-03-30] MEDS: ASPIRIN PO SCH (09:21)
[2017-03-30] MEDS: NORCO-10 PO PRN ×2 (09:21→20:37)
[2017-03-30] MEDS: ZYRTEC PO SCH (09:21)
[2017-03-30] MEDS: PERIDEX MT SCH ×2 (09:24→20:37)
[2017-03-30] MEDS: SANTYL OINT TOP SCH (09:24)
[2017-03-30] MEDS: XANAX PO PRN (20:37)
[2017-03-31] MEDS: PRILOSEC PO SCH ×2 (05:55→09:58)
[2017-03-31] MEDS: DUONEB (A & A) INH PRN (08:13)
[2017-03-31] MEDS ORDERED: PLAVIX PO SCH (09:00)
--- NOTE | 2017-03-31 09:05 | DISCHARGE SUMMARY ---
ADMISSION DATE: 03/26/2017 DISCHARGE DATE: 03/31/2017 PRIMARY DISCHARGE DIAGNOSIS: Atherosclerosis with ulceration of the heels and left lateral malleolus. OTHER DIAGNOSIS: Chronic obstructive pulmonary disease. PRIMARY PROCEDURES: 1. Percutaneous left SFA atherectomy with the DCP balloon angioplasty. 2. Left peroneal artery balloon angioplasty. 3. Left anterior tibial artery atherectomy with open patch angioplasty of the anterior tibial artery. HOSPITAL COURSE: A 76-year-old admitted because of atherosclerosis with ulcerations of his feet. He had significant disease in his SFA, peroneal and anterior tibial arteries. These were treated as noted above. He did have a complication of an anterior tibial artery laceration which had to be repaired. In the hospital he did generally well. His drain was removed on the first postoperative day. We removed his Lewis catheter on that day as well. He had good Doppler flow via his dorsalis pedis and posterior tibial artery. He lives alone so it was felt he would be best served by going to rehab and he agrees with that. He will be discharged on his usual medications, including aspirin and Plavix. He will use Santyl on his ulcerations. He certainly can get up and ambulate. He will return to see me in the office after discharge from rehabilitation. His daniella can be removed on April 09. cc: Patrick Huber MD
[2017-03-31] MEDS: SANTYL OINT TOP SCH ×2 (09:56→09:58)
[2017-03-31] MEDS: LIPITOR PO SCH (09:57)
[2017-03-31] MEDS: ZYRTEC PO SCH (09:57)
[2017-03-31] MEDS: LOPRESSOR PO SCH (09:57)
[2017-03-31] MEDS: NEURONTIN PO SCH (09:57)
[2017-03-31] MEDS: PERIDEX MT SCH (09:57)
[2017-03-31] MEDS: SYNTHROID PO SCH (09:57)
[2017-03-31] MEDS: LASIX PO SCH (09:57)
[2017-03-31] MEDS: PAMELOR PO SCH (09:57)
[2017-03-31] MEDS: ASPIRIN PO SCH (09:58)
--- NOTE | 2017-03-31 10:40 | Diag Imaging Result Doc PS360 ---
EXAM: CHEST-PORTABLE HISTORY: rehab placement TECHNIQUE: AP portable upright at 1030 COMMENT: Compared to the previous study of 11/22/2016, there is slightly more atelectatic appearing opacity over the left base. Otherwise, there is been no significant change. IMPRESSION: Minimal subsegmental atelectasis left lower lobe. Electronically signed by Scooter Deluna 03/31/2017 10:37 AM
[2017-03-31 13:39] VITALS: BP 121/69
== END 2017-03-31 14:42 ==
LOC: 4N 05:08 → OR 05:08
PROVIDERS: ADMIT Surgery; ATTEND Surgery